=== PATIENT | female | born 1940 | race Caucasian/White ===

== ENCOUNTER 2018-08-25 08:17 | Observation (INO) ==
[2018-08-25] MEDS ORDERED: ACETAMINOPHEN 325 MG TABLET PO ONE (08:57)
[2018-08-25] MEDS ORDERED: NORMAL SALINE 1,000 ML IV ONE ×2 (08:58→10:51)
[2018-08-25 09:06] LABS: Hematocrit 39.8 % (37.0-47.0); Mean Cell Volume 93.4 fl (78-100); Mean Corpuscular Hemoglobin 30.5 pg (27-31); Mean Corpuscular Hgb Conc 32.7 g/dl (32-36); Mean Platelet Volume 8.5 fl (8-12.5); Platelet Count 231 K/mm3 (150-450); Red Blood Count 4.26 M/mm3 (4.2-5.4); Red Cell Distribution Width 12.1 % (11.5-14.0); White Blood Count 5.2 K/mm3 (4.0-10.5)
[2018-08-25 09:09] LABS: Total Cells Counted 100
[2018-08-25 09:17] LABS: Urine Appearance Slightly Cloudy (CLEAR); Urine Bilirubin Negative (NEGATIVE); Urine Blood 50 /ul (NEGATIVE); Urine Color Yellow; Urine Ketone 5 mg/dL (NEGATIVE); Urine Nitrite Positive (NEGATIVE); Urine Protein 15 mg/dL (NEGATIVE); Urine Specific Gravity 1.015 SP.GR. (1.005-1.010); Urine Urobilinogen Normal (NORMAL); Urine pH 6.5 pH (5.0-7.0)
[2018-08-25 09:19] LABS: Albumin * 3.3 gm/dl (3.4-5.0); Anion Gap 12.8 mmol/L (6.8-13.8); BUN/Creatinine Ratio 10.1 (9.0-21.6); Bilirubin, Total 1.1 mg/dL (0.0-1.1); CRP 6.2 mg/dL (0.0-0.9); Ca. Corrected For Albumin 8.9 mg/dL (8.4-10.2); Calcium * 8.7 mg/dL (7.9-10.9); Carbon Dioxide 27.1 mmol/L (24-32.6); Potassium 3.9 mmol/L (3.4-4.6); Total Protein 7.4 gm/dL (6.2-8.2)
[2018-08-25 09:23] LABS: Urine Bacteria 2+; Urine RBC 0-5 /hpf (0-5); Urine WBC >50 /hpf (0-5)
[2018-08-25 10:11] LABS: Band 7 % (0-2.0); Lymphocyte 6 % (20-51); Monocyte 2 % (0-9); Neutrophil 85 % (42-75); Neutrophil # 4.4 K/mm3 (1.3-6.0); Platelet Estimate Normal (NORMAL); RBC Morphology Normal (NORMAL)
[2018-08-25] MEDS ORDERED: cefTRIAXone SODIUM 1,000 MG/100 ML BAG IV ONE (10:57)
--- NOTE | 2018-08-25 11:35 | ERNOTE ---
ER Female HPI Date of Service: 08/25/18 Stated Complaint: uti Presenting Symptoms: pelvic pain, dysuria Time Seen by Provider: 08/25/18 08:51 Source: patient, family Exam Limitations: no limitations Immunizations: IMMUNIZATION HX Immunizations Up to Date No History of Influenza Vaccine No Hx Pneumococcal Vaccination No Allergies/Adverse Reactions: Allergies "any medication I've ever taken" Adverse Reaction (Uncoded 08/25/18 08:27) Pt doesnt now know names of these medications - History of Present Illness Narrative: patient presents with hx of fever , dysuria and weakness Timing: Present: constant, getting worse Quality: Present: moderate, burning, sharpness Onset Location: Present: suprapubic Radiation: Present: none Activities at Onset: Present: none Prior Abdominal Problems: Present: similar symptoms Sexual Sells History: Present: single partner Modifying Factors - (Improves): Present: other - nothing Modifying Factors - (Worsens): Present: other - nothing Associated Symptoms: Present: fever/chills, dysuria, urinary frequency, polyuria Review of Systems - Review of Systems Constitutional: Present: See HPI EYE: Present: no symptoms reported ENT: Present: no symptoms reported Respiratory: Present: no symptoms reported Cardiology: Present: no symptoms reported Gastrointestinal/Abdominal: Present: no symptoms reported Genitourinary: Present: See HPI, frequency, pain, dysuria, decreased urinary output Musculoskeletal: Present: muscle stiffness Skin: Present: no symptoms reported Neurological: Present: no symptoms reported Endocrine: Present: no symptoms reported Hematologic/Lymphatic: Present: no symptoms reported Psych: Present: no symptoms reported All Other Systems: All systems neg except as marked Medical History (Last Updated 08/25/18 @ 08:24 by Suyapa Chamberlain RN) COPD (chronic obstructive pulmonary disease) Chronic gastritis Diabetes Multiple sclerosis Peripheral neuropathy Surgical History: Surgical History (Last Updated 08/25/18 @ 08:25 by Suyapa Chamberlain RN) H/O section History of appendectomy History of cholecystectomy Social History: Preferred Language [place] Smoking Status Never smoker Alcohol Use none Drug Use none No Social History Section defined Physical Exam - Physical Exam General Appearance: Present: moderate distress, anxious Head Exam: Present: normal inspection, no evidence of injury Eye Exam: Normal inspection: bilateral, PERRL: bilateral, EOMI: bilateral Ears, Nose, Throat: Present: normal ENT inspection, normal pharynx Neck: Present: normal inspection, nontender Respiratory: Present: no respiratory distress, normal breath sounds, no accessory muscle use, chest nontender, lungs clear Cardiovascular/Chest: Present: regular rate, rhythm, no murmur, normal peripheral pulses Gastrointestinal/Abdominal: Present: normal bowel sounds, nondistended, soft, no organomegaly, tenderness Back Exam: Present: normal inspection, normal range of motion, no CVA tenderness, no vertebral tenderness Extremity Exam: Present: normal inspection, non-tender, normal range of motion, no edema Neurological Exam: Present: alert, oriented, normal mood/affect, no motor/sensory deficits Skin Exam: Present: normal color, warm/dry Lymphatic Exam: Present: no adenopathy Progress - Date and Time Seen: Date and Time: 08/25/18 11:33 patient improved, discussed results of labs and x-rays with dr tobias, to admit to observation - Results and Orders Patient's Lab Results:: I have reviewed the patient's lab results. - Vital Signs Patient's Vital Signs:: I have reviewed the patient's vital signs. Vital Signs: Vital Signs 08/25/18 08:17 08/25/18 08:43 08/25/18 09:33 Temperature 38.1 C H 38.4 C H Pulse Rate 113 H 110 H 93 Respiratory Rate 16 16 16 Blood Pressure 110/59 99/39 104/53 O2 Sat by Pulse Oximetry 92 L 90 L 93 08/25/18 10:00 08/25/18 10:22 08/25/18 10:45 Temperature 36.7 C Pulse Rate 95 94 94 Respiratory Rate 16 16 16 Blood Pressure 112/57 112/57 88/40 L O2 Sat by Pulse Oximetry 90 L 90 L 94 - X-Ray X-Ray #1 X-Ray: chest Interpretation: Interp. by me - no acute process - Progress/Reassessment Chief Complaint: Urinary Tract Problems Progress:: Improved - Transfer of Care Expected Disposition: Admit Plan - Plan Plan: to admit to observation Departure Clinical Impression: Urinary tract infection - Departure Disposition: Still a patient Condition: Stable Referrals: Anali Conde MD [Primary Care Provider] -
[2018-08-25] MEDS ORDERED: CIPROFLOXACIN IN 5 % DEXTROSE 400 MG/200 ML BAG IV SCH (11:45)
[2018-08-25] MEDS ORDERED: NON-FORMULARY 1 DOSE DOSE PO PRN (12:00)
--- NOTE | 2018-08-25 12:23 | HP ---
Chief Complaint - Chief Complaint Date of Service: 08/25/18 Time of Service: 12:17 Chief Complaint: fever, bladder pain History of Present Illness: Patient has a past medical history of diabetes, COPD, & MS which are all controlled with diet or supplements. She and her have not felt well with the last few weeks with cough and upper respiratory congestion, however she developed burning with urination the past couple days. She had an episode this morning of shaking all over that she cannot control and asked her to bring her to the ER. She has no appetite today, and was febrile while in the ED. Urinalysis found evidence of UTI. She also has some low blood pressures. WBC and lactate not elevated, but her pro-calcitonin 2.61. She reports having adverse effects to any medication she has been given in the past, however agrees to antibiotics. Medical History (Last Reviewed 08/25/18 @ 12:20 by Lynne Yeager RN) COPD (chronic obstructive pulmonary disease) Chronic gastritis Diabetes Multiple sclerosis Peripheral neuropathy Surgical History: Surgical History (Last Reviewed 08/25/18 @ 12:20 by Lynne Yeager RN) H/O section History of appendectomy History of cholecystectomy Social History: Preferred Language [place] Smoking Status Never smoker Alcohol Use none Drug Use none No Social History Section defined Review Of Systems (GEN) - Review of Systems Generalized/Overall Review: Present: Chills, Fever Respiratory: Absent: Shortness of Breath Cardiac: Absent: Chest Pain, Edema Abdominal: Absent: Vomiting Genitourinary: Present: Burning, Frequency Immunizations: IMMUNIZATION HX Immunizations Up to Date No History of Influenza Vaccine No Hx Pneumococcal Vaccination No Allergies/Adverse Reactions: Allergies Allergy/AdvReac Type Severity Reaction Status Date / Time "any medication I've ever AdvReac Uncoded 08/25/18 08:27 taken" Exam - Exam Vital Signs: Vital Signs - Last Taken Temp 37.3 C 08/25/18 12:00 Pulse 84 08/25/18 12:00 Resp 16 08/25/18 12:00 BP 106/57 08/25/18 12:00 Pulse Ox 93 08/25/18 12:00 Constitutional: Present: Alert, Oriented x3, Cooperative, No distress ENT Exam: Present: dry mucous membranes Respiratory: Present: lungs clear, normal breath sounds, no respiratory distress Cardiovascular/Chest: Present: regular rate, rhythm Abdomen: Present: soft, tender - suprapubic, CVA tenderness Extremity: Absent: lower extremity edema Diagnostic Studies: Abnormal Lab Results 08/25/18 08/25/18 08/25/18 Range/Units 08:45 09:00 09:00 Neutrophils % (Manual) 85 H (42-75) % Band Neuts % (Manual) 7 H (0-2.0) % Lymphocytes % (Manual) 6 L (20-51) % Lymphocytes # (Manual) 0.3 L (1.5-3.5) k/mm3 Est GFR (Non-Af Amer) 47 L (60-130) mL/min Random Glucose 118 H (70-110) mg/dL ALT 17 L (19-67) U/L C-Reactive Prot, Quant 6.2 H (0.0-0.9) mg/dL Albumin 3.3 L (3.4-5.0) gm/dl Procalcitonin (0.05-0.50) ng/mL Urine Protein 15 H (NEGATIVE) mg/dL Urine Blood 50 H (NEGATIVE) /ul Urine Nitrate Positive H (NEGATIVE) Ur Leukocyte Esterase 500 H (NEGATIVE) /ul Urine WBC >50 H (0-5) /hpf Urine Bacteria 2+ H (NONE) 08/25/18 Range/Units 09:00 Neutrophils % (Manual) (42-75) % Band Neuts % (Manual) (0-2.0) % Lymphocytes % (Manual) (20-51) % Lymphocytes # (Manual) (1.5-3.5) k/mm3 Est GFR (Non-Af Amer) (60-130) mL/min Random Glucose (70-110) mg/dL ALT (19-67) U/L C-Reactive Prot, Quant (0.0-0.9) mg/dL Albumin (3.4-5.0) gm/dl Procalcitonin 2.61 H (0.05-0.50) ng/mL Urine Protein (NEGATIVE) mg/dL Urine Blood (NEGATIVE) /ul Urine Nitrate (NEGATIVE) Ur Leukocyte Esterase (NEGATIVE) /ul Urine WBC (0-5) /hpf Urine Bacteria (NONE) Laboratory Results WBC 5.2 K/mm3 (4.0-10.5) 08/25/18 09:00 RBC 4.26 M/mm3 (4.2-5.4) 08/25/18 09:00 Hgb 13.0 gm/dL (12.5-16.0) 08/25/18 09:00 Hct 39.8 % (37.0-47.0) 08/25/18 09:00 MCV 93.4 fl (78-100) 08/25/18 09:00 MCH 30.5 pg (27-31) 08/25/18 09:00 MCHC 32.7 g/dl (32-36) 08/25/18 09:00 RDW 12.1 % (11.5-14.0) 08/25/18 09:00 Plt Count 231 K/mm3 (150-450) 08/25/18 09:00 MPV 8.5 fl (8-12.5) 08/25/18 09:00 Neutrophils % (Manual) 85 % (42-75) H 08/25/18 09:00 Band Neuts % (Manual) 7 % (0-2.0) H 08/25/18 09:00 Lymphocytes % (Manual) 6 % (20-51) L 08/25/18 09:00 Monocytes % (Manual) 2 % (0-9) 08/25/18 09:00 Neutrophils # (Manual) 4.4 K/mm3 (1.3-6.0) 08/25/18 09:00 Lymphocytes # (Manual) 0.3 k/mm3 (1.5-3.5) L 08/25/18 09:00 Monocytes # (Manual) 0.1 k/mm3 (0.0-1.0) 08/25/18 09:00 Platelet Estimate Normal (NORMAL) 08/25/18 09:00 RBC Morphology Normal (NORMAL) 08/25/18 09:00 Sodium 139 mmol/L (132-142) 08/25/18 09:00 Plasma Sodium 139 mmol/L (130-142) 08/25/18 09:00 Potassium 3.9 mmol/L (3.4-4.6) 08/25/18 09:00 Chloride 103 mmol/L (97-106) 08/25/18 09:00 Carbon Dioxide 27.1 mmol/L (24-32.6) 08/25/18 09:00 Anion Gap 12.8 mmol/L (6.8-13.8) 08/25/18 09:00 BUN 12 mg/dL (3-23) 08/25/18 09:00 Creatinine 1.19 mg/dL (0.4-1.4) 08/25/18 09:00 Est GFR (Non-Af Amer) 47 mL/min (60-130) L 08/25/18 09:00 BUN/Creatinine Ratio 10.1 (9.0-21.6) 08/25/18 09:00 Random Glucose 118 mg/dL (70-110) H 08/25/18 09:00 Lactic Acid, Venous 1.8 mmol/L (0.4-2.0) 08/25/18 09:00 Calcium 8.7 mg/dL (7.9-10.9) 08/25/18 09:00 Calcium Adj for Albumin 8.9 mg/dL (8.4-10.2) 08/25/18 09:00 Total Bilirubin 1.1 mg/dL (0.0-1.1) 08/25/18 09:00 AST 21 U/L (0-48) 08/25/18 09:00 ALT 17 U/L (19-67) L 08/25/18 09:00 Alkaline Phosphatase 76 U/L (50-170) 08/25/18 09:00 C-Reactive Prot, Quant 6.2 mg/dL (0.0-0.9) H 08/25/18 09:00 Total Protein 7.4 gm/dL (6.2-8.2) 08/25/18 09:00 Albumin 3.3 gm/dl (3.4-5.0) L 08/25/18 09:00 Procalcitonin 2.61 ng/mL (0.05-0.50) H 08/25/18 09:00 Urine Color Yellow 08/25/18 08:45 Urine Appearance Slightly cloudy (CLEAR) 08/25/18 08:45 Urine pH 6.5 pH (5.0-7.0) 08/25/18 08:45 Ur Specific [place] 1.015 SP.GR. (1.005-1.010) 08/25/18 08:45 Urine Protein 15 mg/dL (NEGATIVE) H 08/25/18 08:45 Urine Glucose (UA) Negative mg/dL (NEGATIVE) 08/25/18 08:45 Urine Ketones 5 mg/dL (NEGATIVE) 08/25/18 08:45 Urine Blood 50 /ul (NEGATIVE) H 08/25/18 08:45 Urine Nitrate Positive (NEGATIVE) H 08/25/18 08:45 Urine Bilirubin Negative mg/dl (NEGATIVE) 08/25/18 08:45 Prot Sulfosalicylic Acd 1+ mg/dL (0) 08/25/18 08:45 Urine Urobilinogen Normal EU/dl (NORMAL) 08/25/18 08:45 Ur Leukocyte Esterase 500 /ul (NEGATIVE) H 08/25/18 08:45 Urine RBC 0-5 /hpf (0-5) 08/25/18 08:45 Urine WBC >50 /hpf (0-5) H 08/25/18 08:45 Ur Epithelial Cells None seen /hpf (0-5) 08/25/18 08:45 Urine Bacteria 2+ (NONE) H 08/25/18 08:45 Urine Culture Comments Culture to follow 08/25/18 08:45 Influenza Type A Ag Negative (NEGATIVE) 08/25/18 10:22 Influenza Type B Ag Negative (NEGATIVE) 08/25/18 10:22 Assessment/Plan - Assessment/Plan (1) Urinary tract infection Assessment: UA positive for nitrites, leuk esterase, bacteria, and blood. Urine culture pending. She was febrile initially in the ED. Will administer IV Rocephin, and may transition to p.o. tomorrow. She did have some hypotension earlier, and will give 1 L of fluids. If unable to maintain p.o. hydration after that, will repeat. Problem: Acute Qualifiers: Urinary tract infection type: acute cystitis Hematuria presence: with hematuria Qualified Code(s): N30.01 - Acute cystitis with hematuria (2) Diabetes Assessment: Patient reports history of diet-controlled diabetes. Her glucose today is 118. We will give carb consistent diet, however patient reports she eats a gluten- free diet at home, and will have her bring much of her food. Will check glucose with meals and at bedtime. Will start sliding scale insulin if her blood sugars are consistently higher than 200. Problem: Chronic (3) Multiple sclerosis Assessment: Patient reports history of MS. She states she had been recommended to see a neurologist, however did not actually follow through. No previous imaging or notes in our system to verify this diagnosis. Problem: Chronic (4) COPD (chronic obstructive pulmonary disease) Assessment: No previous notes to verify this diagnosis. No wheezing on exam today. She reports taking supplements to help her breathe. Her oxygen is around 90-93% on room air currently, and can add oxygen if needed if she is consistently less than 92%. Problem: Acute
[2018-08-25] MEDS ORDERED: NON-FORMULARY 1 DOSE DOSE TP PRN (12:53)
[2018-08-25] MEDS: NON-FORMULARY 1 DOSE DOSE PO PRN ×4 (13:46→19:31)
[2018-08-25] MEDS: NORMAL SALINE 1,000 ML IV PRN ×2 (16:50→23:38)
[2018-08-25] MEDS ORDERED: ACETAMINOPHEN 325 MG TABLET PO PRN (18:35)
[2018-08-25] MEDS ORDERED: ACETAMINOPHEN 500 MG TABLET PO PRN (18:37)
[2018-08-26] MEDS: NON-FORMULARY 1 DOSE DOSE PO PRN ×2 (08:59→09:00)
[2018-08-26] MEDS ORDERED: NON-FORMULARY 1 DOSE DOSE PO SCH ×2 (09:00)
--- NOTE | 2018-08-26 09:53 | DS ---
(1) Urinary tract infection Problem: Acute Qualifiers: Urinary tract infection type: acute cystitis Hematuria presence: with hematuria Qualified Code(s): N30.01 - Acute cystitis with hematuria (2) Bacteremia Problem: Acute (3) Diabetes Problem: Chronic (4) Multiple sclerosis Problem: Chronic (5) COPD (chronic obstructive pulmonary disease) Problem: Acute Description of Stay: Patient has a PMHx diabetes, COPD, & MS which are all controlled with diet or supplements. She and her have not felt well with the last few weeks with cough and upper respiratory congestion, however she developed burning with urination a couple days prior to admission. She had an episode on the morning of 08/25/18 of shaking all over that she couldn't control and asked her to bring her to the ER. She had no appetite, and was febrile while in the ED. Urinalysis found evidence of UTI, specifically blood, nitrates, leukocyte esterase, bacteria, and white blood cells. She also has some low blood pressures. WBC and lactate not elevated, but her pro-calcitonin 2.61. She was given Rocephin, and had significant improvement in her symptoms by the next day after 2 doses. Her blood cultures were positive for gram-negative bacilli. Her appetite improved and she was able to eat and drink, and ambulate. She felt comfortable going home on the day of discharge. Procedures Performed: none Results and Findings: Pending Mircobiology Results 08/25/18 08:45 Urine,Clean Catch Urine Culture - Preliminary Gram Negative Bacilli 08/25/18 09:20 Blood Blood Culture - Preliminary Ruling Out Pathogen 08/25/18 09:00 Blood Blood Culture - Preliminary Ruling Out Pathogen Lab Pending Results 08/25/18 08:45: Urine Color Yellow, Urine Appearance Slightly cloudy, Urine pH 6.5, Ur Specific [place] 1.015, Urine Protein 15 H, Urine Glucose (UA) Negative, Urine Ketones 5, Urine Blood 50 H, Urine Nitrate Positive H, Urine Bilirubin Negative, Prot Sulfosalicylic Acd 1+, Urine Urobilinogen Normal, Ur Leukocyte Esterase 500 H, Urine RBC 0-5, Urine WBC >50 H, Ur Epithelial Cells None seen, Urine Bacteria 2+ H, Urine Culture Comments Culture to follow 08/25/18 09:00: WBC 5.2, RBC 4.26, Hgb 13.0, Hct 39.8, MCV 93.4, MCH 30.5, MCHC 32.7, RDW 12.1, Plt Count 231, MPV 8.5, Neutrophils % (Manual) 85 H, Band Neuts % (Manual) 7 H, Lymphocytes % (Manual) 6 L, Monocytes % (Manual) 2, Neutrophils # (Manual) 4.4, Lymphocytes # (Manual) 0.3 L, Monocytes # (Manual) 0.1, Platelet Estimate Normal, RBC Morphology Normal 08/25/18 09:00: Sodium 139, Plasma Sodium 139, Potassium 3.9, Chloride 103, Carbon Dioxide 27.1, Anion Gap 12.8, BUN 12, Creatinine 1.19, Est GFR (Non-Af Amer) 47 L, BUN/Creatinine Ratio 10.1, Random Glucose 118 H, Calcium 8.7, Calcium Adj for Albumin 8.9, Total Bilirubin 1.1, AST 21, ALT 17 L, Alkaline Phosphatase 76, C-Reactive Prot, Quant 6.2 H, Total Protein 7.4, Albumin 3.3 L 08/25/18 09:00: Lactic Acid, Venous 1.8 08/25/18 09:00: Procalcitonin 2.61 H 08/25/18 10:22: Influenza Type A Ag Negative, Influenza Type B Ag Negative Discharge Location: Home Disposition: Home self-care Condition: Good Discharge Activity: Activity as tolerated Discharge Diet: General/regular food Referrals: Anali Conde MD [Family Provider] - Prescriptions (Any new or edited meds): Sulfamethoxazole/Trimethoprim [Bactrim] 1 tab PO BID #10 tablet Complete Home Medications List: Complete Home Medication List: Sulfamethoxazole/Trimethoprim [Bactrim] 1 tab PO BID #10 tablet 08/26/18
[2018-08-26 10:13] VITALS: BP 127/67
== END 2018-08-26 10:42 | disposition home or self-care (01) ==
LOC: MS 08:17 → ER 08:17 → MS 12:00
PROVIDERS: ADMIT Family Medicine; ATTEND Family Medicine
CPT/HCPCS: 36415; 71020; 71046; 80053; 81001; 83605; 84145; 85025; 86140; 87040; 87077; 87086; 87186; 87400; 87449; 96365; 96366; 99285; G0378